=== PATIENT | female | born 1985 | race Caucasian/White ===

== ENCOUNTER 2017-04-26 15:46 | Emergency (ER) | payer BC, OTHER ==
[~2017-04-26] VITALS: Ht 172.7 cm; Wt 63.6 kg
[2017-04-26 16:02] VITALS: Ht 172.7 cm; Wt 63.6 kg
[2017-04-26] MEDS ORDERED: SOD CHLORIDE 0.9% 1,000 ML IV STA (16:04)
[2017-04-26] MEDS ORDERED: ADENOSINE 2 ML ONE (16:07)
[2017-04-26] MEDS ORDERED: ADENOSINE 3 MG/ML SYRINGE IV ONE (16:30)
[2017-04-26 16:42] LABS: BASOPHIL # 0.1 10^3/ul (0.0-0.1); BASOPHILS % 0.7 % (0.0-2.0); EOSINOPHILS # 0.1 10^3/ul (0.0-0.5); HEMATOCRIT 39.8 % (37.0-47.0); LYMPHOCYTES # 4.4 10^3/ul (0.8-2.9); LYMPHOCYTES % 42.4 % (15.0-51.0); MEAN CORPUSCULAR HEMOGLOBIN 29.1 pg (29.0-33.0); MEAN CORPUSCULAR HGB CONC 32.7 g/dl (32.0-37.0); MEAN CORPUSCULAR VOLUME 89.2 fl (82.0-101.0); MEAN PLATELET VOLUME 9.7 fl (7.4-10.4); MONOCYTE # 0.6 10^3/ul (0.3-0.9); MONOCYTES % 5.7 % (0.0-11.0); PLATELET COUNT 329 10^3/UL (140-415); RED BLOOD COUNT 4.46 10^6/ul (4.20-5.40); RED CELL DISTRIBUTION WIDTH 12.8 % (11.5-14.5); WHITE BLOOD COUNT 10.4 10^3/ul (4.8-10.8)
--- NOTE | 2017-04-26 16:47 | RADRPT ---
PROCEDURE: XR Chest. CLINICAL INDICATION: Chest pain TECHNIQUE: AP view of the chest was obtained. COMPARISON: None. FINDINGS: The cardiomediastinal silhouette is within normal limits. The lungs are clear. No pleural effusion or pneumothorax is identified. Pad overlies the chest. IMPRESSION: No evidence of active cardiopulmonary disease. RPTAT: VV .Sami Reynoso MD, MD Date Time Electronically viewed and signed by .Sami Reynoso MD, on 04/26/2017 16:47 .O/
[2017-04-26 16:50] LABS: ANION GAP 15 (8-16); BLOOD UREA NITROGEN 14 mg/dl (7-20); CALCIUM 9.4 mg/dl (8.4-10.2); CARBON DIOXIDE 20 mmol/L (21-31); CHLORIDE 105 mmol/L (97-110); CREATININE 0.82 mg/dl (0.44-1.00); GLUCOSE 178 mg/dl (70-220); MAGNESIUM 1.9 mg/dl (1.7-2.5); POTASSIUM 3.6 mmol/L (3.5-5.1); SODIUM 136 mmol/L (135-144)
[2017-04-26 17:05] VITALS: BP 131/94; PULSE 98; RESP 18; TEMP 98.6
[2017-04-26 17:10] LABS: TROPONIN-I < 0.012 ng/ml (0.00-0.12)
[2017-04-26] MEDS ORDERED: NORG1TAB2 PO (17:17)
--- NOTE | 2017-04-26 19:00 | ERD ---
ER Documentation Chief Complaint Date/Time DATE: 04/26/17 TIME: 18:57 Chief Complaint CAME IN VIA INTAKE DUE TO HEART RATE OF 225 HPI Patient is a 32-year-old female with no medical problems who presents with palpitations. She noticed at 2:30 PM that she had palpitations after she arrived in [place] from a flight from [place]. She tried water and a banana but did not feel better. She is having chest pain and left-sided hand numbness. She has never had these feelings before. Upon review of old medical records this is the patient's first visit to the ER. Her PCP is in [place]. ROS All systems reviewed and are negative except as per history of present illness. Medications Home Meds Reported Medications Norgestimate-Ethinyl Estradiol (ESTARYLLA) 1 Each Tablet, 1 EACH PO DAILY, TAB 0.3MG/0.03MG 04/26/17 Allergies Allergies: Coded Allergies: Sulfa (Sulfonamide Antibiotics) (Verified Allergy, Mild, UNSURE, MAYBE RASH, 04/26/17) PMhx/Soc Medical and Surgical Hx: pt denies Medical Hx, pt denies Surgical Hx History of Surgery: No Hx Alcohol Use: Yes Hx Substance Use: No Hx Tobacco Use: No Smoking Status: Never smoker FmHx Family History: No diabetes Physical Exam Vitals Vital Signs Date Time Temp Pulse Resp B/P Pulse Ox O2 Delivery O2 Flow Rate FiO2 04/26/17 17:05 98.6 98 18 131/94 100 Nasal Cannula 2.0 04/26/17 16:21 Nasal Cannula 2 04/26/17 16:02 98.6 225 18 144/82 100 Physical Exam Const: Mild distress Head: Atraumatic Eyes: Normal Conjunctiva ENT: Normal External Ears, Nose and Mouth. Neck: Full range of motion..~ No meningismus. Resp: Clear to auscultation bilaterally Cardio: Tachycardic rate without murmur Abd: Soft, non tender, non distended. Normal bowel sounds Skin: No petechiae or rashes Back: No midline or flank tenderness Ext: No cyanosis, or edema Neur: Awake and alert Psych: Normal Mood and Affect Result Diagram: 04/26/17 1610 04/26/17 1610 Results 24 hrs Laboratory Tests Test 04/26/17 16:10 White Blood Count 10.410^3/ul Red Blood Count 4.4610^6/ul Hemoglobin 13.0g/dl Hematocrit 39.8% Mean Corpuscular Volume 89.2fl Mean Corpuscular Hemoglobin 29.1pg Mean Corpuscular Hemoglobin Concent 32.7g/dl Red Cell Distribution Width 12.8% Platelet Count 15881^3/UL Mean Platelet Volume 9.7fl Neutrophils % 50.0% Lymphocytes % 42.4% Monocytes % 5.7% Eosinophils % 1.0% Basophils % 0.7% Nucleated Red Blood Cells % 0.0/100WBC Neutrophils # (Manual) 5.210^3/ul Lymphocytes # 4.410^3/ul Monocytes # 0.610^3/ul Eosinophils # 0.110^3/ul Basophils # 0.110^3/ul Nucleated Red Blood Cells # 0.010^3/ul Sodium Level 136mmol/L Potassium Level 3.6mmol/L Chloride Level 105mmol/L Carbon Dioxide Level 20mmol/L Anion Gap 15 Blood Urea Nitrogen 14mg/dl Creatinine 0.82mg/dl Glucose Level 178mg/dl Calcium Level 9.4mg/dl Magnesium Level 1.9mg/dl Troponin I < 0.012ng/ml Thyroid Stimulating Hormone (TSH) 1.110MIU/L Free Thyroxine 1.16ng/dl Current Medications Medications (Trade) Dose Ordered Sig/Marielena Route PRN Reason Start Time Stop Time Status Last Admin Dose Admin Sodium Chloride (NS) 1,000 ml @ 1,000 mls/hr Q1H STAT IV 04/26/17 16:04 04/26/17 17:03 DC 04/26/17 16:44 Adenosine 6 mg 6 mg ONCE ONCE IV 04/26/17 16:30 04/26/17 16:31 DC 04/26/17 16:49 Adenosine (Adenosine) 2 ml @ ud STK-MED ONCE .ROUTE 04/26/17 16:07 04/26/17 16:08 DC Procedures/MDM EKG #1 read by me: Rate/Rhythm: SVT at a rate of over 200 intervals: Normal Impression: SVT without signs of ischemia EKG #2 read by me: Rate/Rhythm: Regular rate and rhythm at a normal intervals: Normal Impression: Conversion of the SVT without ischemia Chest x-ray shows no pneumonia or pneumothorax per radiology. Patient is a 32-year-old female presents with acute SVT. She has never had this before. She is otherwise young and healthy. Her laboratory studies are basically normal. The patient had pacer pads applied and was given adenosine 6 mg IV which converted her to a normal sinus rhythm. She feels better after conversion to sinus rhythm. The patient has a negative troponin. I doubt acute coronary syndrome, pneumonia, pneumothorax, pulmonary embolism, or aortic dissection. The patient will be discharged but will need to follow-up with her primary doctor within 1 week. I did consider beta-julieta therapy but since this is her first episode of SVT I will withhold this at this point. She can return for any worsening symptoms. Critical Care: Time: 35 minutes excluding all billable procedures. Treatments/Evaluations: Close monitoring and treatment of unstable vital signs, cardiorespiratory, and neurologic status, while maintaining tight balance of fluid, respiratory, and cardiac interventions. Departure Diagnosis: Primary Impression: SVT (supraventricular tachycardia) Additional Impression: Tachycardia Condition: Fair Patient Instructions: SVT Referrals: Your doctor in [place] Additional Instructions: Call your primary care doctor TOMORROW for an appointment during the next 1 WEEK.Tell the bilingual secretary that you were referred from this facility.See the doctor sooner or return here if your condition worsens before your appointment time. MOSHE PEDERSEN MD Apr 26, 2017 19:00
== END 2017-04-26 17:35 | disposition home or self-care (01) ==
LOC: E/R 15:46
DX: I47.1 Supraventricular tachycardia (principal)
CPT/HCPCS: 36415; 71010; 80048; 83735; 84439; 84443; 84484; 85025; 93005; 96374; 99285; J0153; J7030